=== PATIENT | female | born 1970 | race Caucasian/White ===

== ENCOUNTER → 2018-04-21 10:37 | Outpatient (CLI) | payer OTHER, SELFPAY ==
--- NOTE | 2018-04-21 11:11 | ECHOD_ITS ---
Reason For Study: PVC Procedure This was a 2D Doppler, Color Flow transthoracic echocardiogram. Exam performed in department. Left Ventricle Normal size and thickness. The estimated ejection fraction is 65 %. Normal diastology for age. No regional wall motion abnormalities noted. Right Ventricle Normal size and thickness. Normal systolic function. Atria Normal left atrium. Normal right atrium. Normal atrial septum. Mitral Valve The mitral valve is structurally normal. No prolapse or stenosis seen. Tricuspid Valve Normal tricuspid valve. Trivial tricuspid valve insufficiency. Right ventricular systolic pressure estimated to be 27 mmHg. Aortic Valve Normal aortic valve. Trisinus/trileaflet aortic valve. Pulmonic Valve Normal pulmonic valve. Trivial pulmonic valve insufficiency. Great Vessels Normal aortic root. Normal arch. Normal inferior vena cava. Inferior vena cava collapse with sniff. Pericardium/Pleural No pericardial effusion. MMode/2D Measurements & Calculations LVIDd: 4.6 cm IVSd: 1.0 cm Ao root diam: 3.4 cm LVIDs: 2.9 cm LVPWd: 0.96 cm RVDd: 3.6 cm FS: 37.2 % LAV(MOD-bp): 68.8 ml LA A4 area: 20.9 cm2 RA A4 area: 14.5 cm2 LAV(MOD-bp) Indexed: 30.7 ml/m2 LAV(MOD-sp2): 71.2 ml LAV(MOD-sp4): 66.3 ml Time Measurements MV dec time: 0.20 sec Doppler Measurements & Calculations MV E max kwan: 87.6 cm/sec Lat Peak E' Kwan: 7.9 cm/sec Med Peak E' Kwan: 7.2 cm/sec MV A max kwan: 86.1 cm/sec E/E' lat: 11.1 E/E' med: 12.2 MV E/A: 1.0 Ao V2 max: 125.2 cm/sec LV V1 max: 100.9 cm/sec PA V2 max: 83.6 cm/sec Ao max P.3 mmHg LV V1 max P.1 mmHg TR max kwan: 235.9 cm/sec TR max P.3 mmHg Interpretation Summary The estimated ejection fraction is 65 %. Normal diastology for age. Trivial tricuspid valve insufficiency. Right ventricular systolic pressure estimated to be 27 mmHg. There is no comparison study available. Ordering Physician: Vishal Meneses Referring Physician: Vishal Meneses Performed By: Lauren Dickens, PRINCESS, RVT
== END ==
PROVIDERS: Visit Provider Internal Medicine Cardiovascular Disease
DX: I49.3 Ventricular premature depolarization (principal); R06.00 Dyspnea, unspecified; R07.9 Chest pain, unspecified; R42 Dizziness and giddiness
CPT/HCPCS: 93306

== ENCOUNTER 2018-04-24 08:35 | Outpatient (RCR) | payer OTHER, SELFPAY | END 2018-05-10 23:59 | disposition home or self-care (01) | LOC: NS 08:35 | DX: E11.40 Type 2 diabetes mellitus with diabetic neuropathy, unspecified (principal); I10 Essential (primary) hypertension; E66.01 Morbid (severe) obesity due to excess calories; Z68.41 Body mass index [BMI] 40.0-44.9, adult; Z71.3 Dietary counseling and surveillance ==

== ENCOUNTER 2018-05-11 09:07 | Outpatient (RCR) | payer OTHER, SELFPAY | END 2018-05-11 17:31 | disposition home or self-care (01) | LOC: NS 09:07 | DX: E11.40 Type 2 diabetes mellitus with diabetic neuropathy, unspecified (principal); I10 Essential (primary) hypertension; E66.01 Morbid (severe) obesity due to excess calories; Z68.41 Body mass index [BMI] 40.0-44.9, adult; Z71.3 Dietary counseling and surveillance | CPT/HCPCS: 97802 ==

== ENCOUNTER → 2018-07-21 09:59 | Outpatient (CLI) | payer OTHER, SELFPAY ==
[2018-07-21 10:09] LABS: Bacteria 0 SEEN /hpf (None Seen); Mucous, Urine 0 SEEN /hpf (<or=2+); Red Blood Cells-Urine 0 SEEN /hpf (0-5); Squamous Epithelial Cells - UA 0 SEEN /hpf (5-10)
[2018-07-21 12:31] LABS: Absolute Lymphocyte Count 2.28 X10^3/ul (0.83-4.51); Absolute Neutrophil Count 5.4 X10^3/uL (2.0-7.7); Basophil# 0.03 X10^3/uL; Basophil% 0.4 % (0-1); Eosinophil# 0.07 X10^3/uL; Eosinophils% 0.9 % (0-5); Hematocrit 42.4 % (37-47); Hemoglobin 13.9 g/dl (12.0-15.0); Lymphocyte # 2.28 X10^3/ul (4.0); Lymphocyte % 27.8 % (19-41); Mean Corp Hgb Conc 32.8 g/gl (32-36); Mean Corpuscular Hgb 28.9 pg (27.0-32.0); Mean Corpuscular Volume 88.1 fL (81-99); Mean Platelet Vol. 12.6 fl (6.2-12.0); Monocyte# 0.41 X10^3/uL; Neutrophil # 5.41 X10^3/uL (2.7-7.7); Neutrophil % 65.8 % (47-70); Platelet Count 199 K/mm3 (150-450); RBC Distribution Width SD 44.8 fl (35.1-43.9); Red Blood Count 4.81 M/mm3 (4.2-5.4); White Blood Count 8.2 K/mm3 (4.4-11.0)
[2018-07-21 12:36] LABS: POSITIVE COUNT NO; POSITIVE DIFFERENTIAL NO; POSITIVE MORPHOLOGY NO
[2018-07-21 12:56] LABS: Color, Urine Yellow (Yellow); Glucose, Dipstick 100 mg/dl (Normal); Ketone-Dipstick 5 mg/dl (Negative); Leukocyte Esterase-Dipstick 25 /ul (Negative); Nitrite-Dipstick Negative (Negative); Occult Blood-Urine Negative /ul (Negative); Protein-Dipstick Negative (Negative); Urine Bilirubin Dipstick Negative (Negative); Urine Clarity Sl. Cloudy (Clear); Urine Urobilinogen Normal (Normal)
[2018-07-21 12:57] LABS: Vitamin B12 425 pg/mL (211-911); Vitamin D,25 Hydroxy 19.4 ng/mL (29.95-100.01)
[2018-07-21 12:58] LABS: Hemoglobin A1c 9.2 % (4.2-6.3)
[2018-07-21 13:03] LABS: AST(SGOT) 21 U/L (15-37); Alanine Aminotransfer ALT/SGPT 37 U/L (13-56); Albumin, Serum 3.6 g/dL (3.2-5.0); Alkaline Phosphatase 98 U/L (45-117); Anion Gap 10 (5-15); BUN 10 mg/dL (7-18); BUN/Creat Ratio 15.9 RATIO (10-20); Calcium,Total 8.8 mg/dL (8.5-10.1); Chloride 102 mmol/L (98-107); Creatinine, Serum 0.63 mg/dL (0.55-1.02); EST Glomerular Filtration Rate 107 mL/min (>60); Est Glom Filt Rate - Afr Amer 129 mL/min (>60); Globulin 3.7 g/dL (2.2-4.2); Glucose 225 mg/dL (74-106); Potassium 4.2 mmol/L (3.5-5.1); Protein, Total 7.3 g/dL (6.4-8.2); Sodium Level 138 mmol/L (136-145); Thyroid Stim Hormone (TSH) 1.14 uIU/mL (0.358-3.74)
[2018-07-21 13:04] LABS: White Blood Cells 0-5 SEEN /hpf (0-5)
[2018-07-21 20:27] LABS: Microalbumin,Random Urine 8.1 mg/L (NO RANGE EST.); Microalbumin:Creatinine Ratio 10.8 mg/g CRE (<30 mg/g CRE)
[2018-07-27 10:37] LABS: Vitamin B1, Thiamine 120.9 nmol/L (66.5-200.0)
--- OUTSIDE RECORDS SUMMARY | 2018-09-06 10:18 | XMS RPT_ITS ---
:1970 Author Organization OHIP Care Team Providers Name Role Phone Vishal Meneses Attending Unavailable Primay Care Physicia, No Referring Unavailable Visahl Meneses Attending Unavailable Vishal Meneses Referring Unavailable Primay Care Physicia, No Primary Care Unavailable Vishal Meneses Attending Unavailable Vishal Meneses Referring Unavailable Primay Care Physicia, No Primary Care Unavailable Robbi Peck Attending Unavailable Robbi Peck Primary Care Unavailable Vishal Meneses Attending Unavailable Vishal Meneses Referring Unavailable Vishal Meneses Attending Unavailable Vishal Meneses Attending Unavailable Vishal Meneses Referring Unavailable Primay Care Physicia, No Primary Care Unavailable Primay Care Physicia, No Primary Care Unavailable BARBARA MALIK Attending Unavailable BARBARA MALIK Referring Unavailable BARBARA MALIK Consulting Unavailable Primay Care Physicia, No Primary Care Unavailable BARBARA MALIK Attending Unavailable BARBARA MALIK Referring Unavailable BARBARA MALIK Consulting Unavailable Vishal Meneses Attending Unavailable Vishal Meneses Referring Unavailable PROBLEMS PROBLEMS DATE TYPE CONDITION / CODE ATTENDING STATUS SOURCE 08/06/2018 Unknown E11.40 - Type 2 Robbi Peck Active Mobile diabetes mellitus E [facility]ly [facility] with diabetic Hospital neuropathy, Repository unspecified / E11.40(ICD-10) 07/24/2018 Unknown R07.9 - Chest pain, Vishal Meneses Active Mobile unspecified / Community R07.9(ICD-10) Hospital Repository 06/19/2018 Unknown I49.3 - Ventricular Vishal Meneses Active [facility] premature Community depolarization / Hospital I49.3(ICD-10) Repository 05/19/2018 Unknown R06.09 - Other forms Vishal Meneses Active [employer] of dyspnea / Community R06.09(ICD-10) Hospital Repository PROCEDURES PROCEDURES No Procedure Records FoundRESULTS RESULTS CBC W/DIFF, AUTOMATED Collected: 07/21/2018 Status: F Source: MIK 10:02 AM [facility] REPOSITORY TYPE CODE TESTS RESULT OUT OF RANGE REFERENCE UNITS LAB L100.1000 4.4-11.0 K/mm3 Normal WBC 8.2 LAB L100.1200 4.2-5.4 M/mm3 Normal RBC 4.81 LAB L100.1300 12.0-15.0 g/dl Normal HGB 13.9 LAB L100.1400 37-47 % Normal HCT 42.4 LAB L100.1500 81-99 fL Normal MCV 88.1 LAB L100.1600 27.0-32.0 pg Normal MCH 28.9 LAB L100.1700 32-36 g/gl Normal MCHC 32.8 LAB L100.1810 11.6-14.6 % Normal RDW CV 14.0 LAB L100.1820 35.1-43.9 fl High RDW SD 44.8 LAB L100.1900 150-450 K/mm3 Normal PLT 199 LAB L100.2000 6.2-12.0 fl High MPV 12.6 LAB L100.2100 47-70 % Normal NEUT% 65.8 LAB L100.2200 19-41 % Normal LY% 27.8 LAB L100.2300 0-10 % Normal MONO% 5.0 LAB L100.2400 0-5 % Normal EO% 0.9 LAB L100.2500 0-1 % Normal BASO% 0.4 LAB L100.2550 0.0-0.9 % Normal IM GRAN % 0.100 Result Comment: IG% - Immature Granulocytes (promyelocytes, myelocytes and metamyelocytes) > 1% indicates that a LEFT SHIFT is Present. LAB L100.2620 2.0-7.7 X10 3/uL Normal Absolute Neut 5.4 LAB L100.2720 0.83-4.51 X10 3/ul Normal Absolute Lymph 2.28 Performed By: #### L100.0100, L503.0105, L506.1000, L501.9985, L500.4050, L501.9520, L502.0250 #### [facility] [address] [place], [place], [address] VITAMIN B12 Collected: 07/21/2018 Status: F Source: MIK 10:02 AM [facility] REPOSITORY TYPE CODE TESTS RESULT OUT OF RANGE REFERENCE UNITS LAB L503.0105 211-911 pg/mL Normal Vitamin B12 425 Performed By: #### L100.0100, L503.0105, L506.1000, L501.9985, L500.4050, L501.9520, L502.0250 #### [facility] [address] [place], [address] VITAMIN D,25 HYDROXY Collected: 07/21/2018 Status: F Source: MIK 10:02 AM [facility] REPOSITORY TYPE CODE TESTS RESULT OUT OF REFERENCE UNITS RANGE LAB L506.1000 29.95-100.01 ng/mL Low Vitamin D 19.4 25-OH Result Comment: Vitamin D 25(OH) Status Range Deficiency <20 ng/mL (50nmol/L) Insuffciency 20 - 30 ng/mL (50 - 75 nmol/L) Sufficiency 30 - 100 ng/mL (75 - 250 nmol/L) Toxicity >100 ng/mL (>250 nmol/L) Performed By: #### L100.0100, L503.0105, L506.1000, L501.9985, L500.4050, L501.9520, L502.0250 #### [facility] [address] [place], [address] HEMOGLOBIN A1C Collected: 07/21/2018 Status: F Source: MIK 10:02 [facility] REPOSITORY TYPE CODE TESTS RESULT OUT OF RANGE REFERENCE UNITS LAB L501.9985 4.2-6.3 % High HGB A1C 9.2 Performed By: #### L100.0100, L503.0105, L506.1000, L501.9985, L500.4050, L501.9520, L502.0250 #### [facility] [address] [place], [address] COMPREHENSIVE METABOLIC Collected: 07/21/2018 Status: F Source: MIK [facility] 10:02 AM [facility] REPOSITORY Order Comment: Comments: B6 #[id number] PLASMA FROZEN PFL TYPE CODE TESTS RESULT OUT OF RANGE REFERENCE UNITS LAB L501.0100 74-106 mg/dL High GLU 225 Result Comment: Glucose result greater than or equal to 200 mg/dL suggests DIABETES MELLITUS per A.D.A. criteria. Please note revised GLUCOSE reference range effective 2017. LAB L501.1000 7-18 mg/dL Normal BUN 10 LAB L501.1100 0.55-1.02 mg/dL Normal CREAT,SERUM 0.63 Result Comment: The validity of the calculated GFR AND GFRAA in patients over 70 years has not been determined. Clinical correlation is essential. LAB L501.1110 >60 mL/min Normal EST GFR 107 Result Comment: Non- GFR Calc LAB L501.1115 >60 mL/min Normal EST GFR - AA 129 Result Comment: GFR Calc LAB L501.1300 10-20 RATIO Normal BUN/CRE 15.9 LAB L501.1500 6.4-8.2 g/dL T Normal PROT 7.3 LAB L501.1800 3.2-5.0 g/dL Normal ALB 3.6 LAB L501.1950 2.2-4.2 g/dL Normal GLOB 3.7 LAB L501.2000 0.9-2.4 RATIO Normal A/G 1.0 LAB L501.2200 8.5-10.1 mg/dL CA Normal 8.8 LAB L501.4100 15-37 U/L Normal AST 21 LAB L501.4305 45-117 U/L Normal ALK P 98 LAB L501.4405 13-56 U/L Normal ALT 37 LAB L501.4600 0.20-1.00 mg/dL T Normal BILI 0.70 LAB L501.5300 136-145 mmol/L NA Normal 138 LAB L501.5600 3.5-5.1 mmol/L K Normal 4.2 LAB L501.5900 98-107 mmol/L CL Normal 102 LAB L501.6100 21.0-32.0 mmol/L Normal CO2 26.0 LAB L501.6200 5-15 Normal GAP 10 Performed By: #### L100.0100, L503.0105, L506.1000, L501.9985, L500.4050, L501.9520, L502.0250 #### [facility] [address] [place], [address] THYROID STIM HORMONE Collected: 07/21/2018 Status: F Source: MIK (TSH) 10:02 AM [facility] REPOSITORY Order Comment: Comments: B6 #[id number] PLASMA FROZEN PFL TYPE CODE TESTS RESULT OUT OF RANGE REFERENCE UNITS LAB L501.9520 0.358-3.74 uIU/mL Normal TSH 1.14 Performed By: #### L100.0100, L503.0105, L506.1000, L501.9985, L500.4050, L501.9520, L502.0250 #### [facility] [address] [place], [place], [id number] MICROALB:CREAT Collected: 07/21/2018 Status: F Source: MIK RATIO,RANDOM UR 10:02 AM [facility] REPOSITORY TYPE CODE TESTS RESULT OUT OF RANGE REFERENCE UNITS LAB L501.1200 NO RANGE EST. mg/dL Normal UR CREAT 74.40 LAB L502.0500 NO RANGE EST. mg/L Normal 8.1 MICROALBUMIN ,UR LAB L502.0600 <30 mg/g CRE mg/g CRE Normal 10.8 MALB:CREAT Performed By: #### L100.0100, L503.0105, L506.1000, L501.9985, L500.4050, L501.9520, L502.0250 #### [facility] [address] [facility] [place], [place], [id number] URINALYSIS, COMPLETE Collected: 07/21/2018 Status: F Source: MIK 10:02 AM [facility] REPOSITORY Order Comment: Comments: B6 #4655 PLASMA FROZEN PFL How was Urine Obtained? CLEAN CATCH TYPE CODE TESTS RESULT OUT OF RANGE REFERENCE UNITS LAB L400.3000 Yellow COLOR Normal Yellow LAB L400.3050 Clear Normal CLARITY Sl. Cloudy LAB L400.3200 Normal mg/dl High GLUCOSE, UR 100 LAB L400.3300 Negative mg/dL Normal BILIRUBIN URINE Negative LAB L400.3400 Negative mg/dl High 5 KETONE UR LAB L400.3465 1.002-1.030 Normal SP.GR. DIPSTX 1.020 LAB L400.3550 5.0 - 8.0 pH UR Normal 6.0 LAB L400.3600 Negative mg/dl PROT Normal DIPSTX Negative LAB L400.3700 Normal mg/dl Normal UROBILI Normal LAB L400.3750 Negative Normal NITRITE UR Negative LAB L400.3780 Negative /ul Normal OCCULT BLOOD-UR Negative LAB L400.3800 Negative /ul High LEUK 25 ESTERASE LAB L400.4050 0-5 /hpf WBC Normal 0-5 SEEN LAB L400.4100 0-5 /hpf 0 Normal RBC-UA SEEN LAB L400.4150 5-10 /hpf SQUAM 0 Normal EPI SEEN LAB L400.4300 None Seen /hpf 0 Normal BACTERIA SEEN LAB L400.4350 <or=2+ /hpf 0 Normal MUCUS, URINE SEEN Performed By: #### L400.0001 #### [facility] [address] [place], [address] VITAMIN B1, THIAMINE Collected: 07/21/2018 Status: F Source: MIK 10:02 AM [facility] REPOSITORY Order Comment: Comments: B6 #4655 PLASMA FROZEN PFL TYPE CODE TESTS RESULT OUT OF RANGE REFERENCE UNITS LAB L3300.8000 66.5-200.0 nmol/L Normal VIT B1 120.9 Result Comment: This test was developed and its performance characteristics determined by [employer]. It has not been cleared or approved by the Food and Drug Administration. Performed at: [address] [id number] [employer]: Helder Douglas MD, Phone: [phone] Performed By: #### L3300.8000 #### [facility] (refer to report for specific site) refer to report for address and phone number MISCELLANEOUS LAB Collected: 07/21/2018 Status: F Source: MIK PROCEDURE 10:02 AM [facility] REPOSITORY Order Comment: Comments: B6 #4655 PLASMA FROZEN PFL Test(s) Ordered: B6 #4655 PLASMA FROZEN PFL TYPE CODE TESTS RESULT OUT OF RANGE REFERENCE UNITS LAB L801.1541 Normal [facility] LAB TEST Result Comment: TEST RESULT LIMITS Vitamin B6, Plasma 6.4 ug/L 2.0 - 32.8 Disclaimer: This test was developed and its performance characteristics determined by [employer]. It has not been cleared or approved by the Food and Drug Administration. TESTING PERFORMED AT [facility]. ORIGINAL REPORT ON FILE IN LAB CONTAINS ADDITIONAL TEST SITE INFORMATION. Performed By: #### L801.1541 #### [facility] [address] [place], [address] ECHOCARDIOGRAM COMPLETE Observed: 04/21/2018 Status: F Source: [place] 5:07 PM [facility] REPOSITORY [facility] [address] [place] [address] Echo Complete 04/21/18 1116 MR#: [id number] Acct: [id number] Name: JUANITO NIÑO Rep #: [id number] : 1970 48 From: Vishal Meneses MD Attending Dr: Vishal Meneses MD Status: REG CLI Ordering Dr: Vishal Meneses MD Date: 04/21/18 Location: [facility] Sex: F C Admitted: Reason For Study: PVC Procedure This was a 2D Doppler, Color Flow transthoracic echocardiogram. Exam performed in department. Left Ventricle Normal size and thickness. The estimated ejection fraction is 65 %. Normal diastology for age. No regional wall motion abnormalities noted. Right Ventricle Normal size and thickness. Normal systolic function. Atria Normal left atrium. Normal right atrium. Normal atrial septum. Mitral Valve The mitral valve is structurally normal. No prolapse or stenosis seen. Tricuspid Valve Normal tricuspid valve. Trivial tricuspid valve insufficiency. Right ventricular systolic pressure estimated to be 27 mmHg. Aortic Valve Normal aortic valve. Trisinus/trileaflet aortic valve. Pulmonic Valve Normal pulmonic valve. Trivial pulmonic valve insufficiency. Great Vessels Normal aortic root. Normal arch. Normal inferior vena cava. Inferior vena cava collapse with sniff. Pericardium/Pleural No pericardial effusion. MMode/2D Measurements AND Calculations LVIDd: 4.6 cm IVSd: 1.0 cm Ao root diam: 3.4 cm LVIDs: 2.9 cm LVPWd: 0.96 cm RVDd: 3.6 cm FS: 37.2 % LAV(MOD-bp): 68.8 ml LA A4 area: 20.9 cm2 RA A4 area: 14.5 cm2 LAV(MOD-bp) Indexed: 30.7 ml/m2 LAV(MOD-sp2): 71.2 ml LAV(MOD-sp4): 66.3 ml Time Measurements MV dec time: 0.20 sec Doppler Measurements AND Calculations MV E max kwan: 87.6 cm/sec Lat Peak E' Kwan: 7.9 cm/sec Med Peak E' Kwan: 7.2 cm/sec MV A max kwan: 86.1 cm/sec E/E' lat: 11.1 E/E' med: 12.2 MV E/A: 1.0 Ao V2 max: 125.2 cm/sec LV V1 max: 100.9 cm/sec PA V2 max: 83.6 cm/sec Ao max P.3 mmHg LV V1 max P.1 mmHg TR max kwan: 235.9 cm/sec TR max P.3 mmHg Interpretation Summary The estimated ejection fraction is 65 %. Normal diastology for age. Trivial tricuspid valve insufficiency. Right ventricular systolic pressure estimated to be 27 mmHg. There is no comparison study available. Ordering Physician: Vishal Meneses Referring Physician: Vishal Meneses Performed By: Lauren Dickens RDCS, RVT 04/21/181705 Date Vishal Meneses MD CC: No Primary Care Physician; Vishal Meneses MD Date Dictated: 04/21/186 Date Transcribed: 04/21/181705 [employer]der: Signed OFFICE VISIT (FAMILY Observed: 01/01/2018 Status: UNK Source: [facility]) 1:25 PM HOSPITALS REPOSITORY History of Present Illness Patient is here for health management evaluation of DM, HTN Is taking and tolerating Glyburide Fasting blood sugar was 165 this morning Does have numbness/weakness in feet. Is taking Gabapentin for this review labs WOuld like to get referral to director of math for wt loss Is there anything she can take to help with weight loss -is not exercising a lot, goes for a walk in the afternoon Has an appointment with weight watchers tomorrow Wants to know if there is anything she can take to curb her appetite Back is really bothering her. When she bends or lifts it feels like something pops, has not yet done Physical Therapy wants a scan of her back to rule out any abnormalities Patient states that this is the heaviest she has ever weighed Has tried Aleve, which did not help Denies numbness in groin area, incontinence of stool/urine, unexplained weight loss, night sweats, Has a rash around her stomach and on the folds of her skin Notes that she has moles around hr body. Not bothersome but annoying Review of Systems Constitutional: no night sweats. Genitourinary: no incontinence. Musculoskeletal: back pain. Integumentary: a rash. Neurological: numbness and tingling. Endocrine: no recent weight loss. Active Problems Abnormal tympanic membrane, left (384.9) (H73.92) Arthralgia of multiple joints (719.49) (M25.50) control (V25.9) (Z30.9) Lora infection (112.9) (B37.9) Diabetes mellitus with neuropathy (250.60,357.2) (E11.40) Diabetic polyneuropathy associated with type 2 diabetes mellitus (250.60,357.2) (E11.42) GERD (gastroesophageal reflux disease) (530.81) (K21.9) HTN (hypertension) (401.9) (I10) Immunization due (V05.9) (Z23) Intertrigo (695.89) (L30.4) Joint pain (719.40) (M25.50) Left hip pain (719.45) (M25.552) Low back pain (724.2) (M54.5) Malaise and fatigue (780.79) (R53.81,R53.83) Neuropathy (355.9) (G62.9) Rash (782.1) (R21) Restless legs syndrome (333.94) (G25.81) Vitamin B 12 deficiency (266.2) (E53.8) Vitamin D deficiency (268.9) (E55.9) Past Medical History History of cold sores (V12.09) (Z86.19) History of heartburn (V12.79) (Z87.898) History of pharyngitis (V12.69) (Z87.09) History of sinusitis (V12.69) (Z87.09) History of staphylococcal infection (V12.09) (Z86.19) History of streptococcal pharyngitis (V12.09) (Z87.09) History of Lateral epicondylitis of left elbow (726.32) (M77.12) History of Palpitations (785.1) (R00.2) Polydipsia (783.5) (R63.1) History of Polyuria (788.42) (R35.8) Surgical History History of Appendectomy History of Cholecystectomy Laparoscopic History of Inner Ear Surgery History of Partial Colectomy Family History Family history of Family history of diabetes mellitus (V18.0) (Z83.3) Family history of CABG Family history of Family history of diabetes mellitus (V18.0) (Z83.3) Family history of lung cancer (V16.1) (Z80.1) Family history of malignant neoplasm of urinary bladder (V16.52) (Z80.52) Family history of skin cancer (V16.8) (Z80.8) Family history of cardiomyopathy (V17.49) (Z82.49) Family history of myocardial infarction (V17.3) (Z82.49) Family history of ICD (implantable cardioverter-defibrillator) discharge Social History Never a smoker No alcohol use Allergies lisinopril Chest Pain;; Recorded By: Becky Santacruz; 08/21/2017 3:53:06 PM metformin Diarrhea; Recorded By: Sabrina Pagan; 07/28/2017 11:19:32 AM Current Meds Meloxicam 15 MG Oral Tablet; TAKE 1 TABLET BY MOUTH EVERY DAY NEEDED; Therapy: 05Sep2017 to (Evaluate:96Vxp6277) Requested for: 05Sep2017; Last Rx:05Sep2017 Ordered Rx By: Marnie Pyle; Dispense: 30 Days ; #:30 Tablet; Refill: 0;For: Arthralgia of multiple joints; EILEEN = N; Verified Transmission to [facility] #3088; Last Updated By: [employer]; 01/01/2018 1:19:53 PM Gabapentin 300 MG Oral Capsule; TAKE 1 CAPSULE 3 TIMES DAILY; Therapy: 37Uvl7302 to (Evaluate:24Jan2018) Requested for: 37Hpo8628; Last Rx:[id number] Ordered Rx By: Marnie Pyle; Dispense: 90 Days ; #:270 Capsule; Refill: 1;For: Diabetes mellitus with neuropathy; EILEEN = N; [facility]; Last Updated By: [employer]; 01/01/2018 1:19:53 PM GlyBURIDE 5 MG Oral Tablet; TAKE 1 TABLET TWICE DAILY BEFORE MEALS; Therapy: 30Fjv0449 to (Evaluate:35Wrz1278) Requested for: 05Sep2017; Last Rx:05Sep2017 Ordered Rx By: Marnie Pyle; Dispense: 90 Days ; #:180 Tablet; Refill: 1;For: Diabetes mellitus with neuropathy; EILEEN = N; Verified Transmission to [facility] #3088; Last Updated By: [employer]; 01/01/2018 1:19:53 PM Aspirin 81 MG TABS; TAKE 1 TABLET DAILY; Therapy: 09Jan2015 to Recorded Dispense: 0 Days ; #: Sufficient Tablet; Refill: 0;For: Health Maintenance; EILEEN = N; Record; Last Updated By: Yakelin Decker; 01/09/2015 2:57:23 PM AmLODIPine Besylate 5 MG Oral Tablet; TAKE 1 TABLET DAILY; Therapy: 05Sep2017 to (Evaluate:39Chd1666) Requested for: 05Sep2017; Last Rx:05Sep2017 Ordered Rx By: Marnie Pyle; Dispense: 90 Days ; #:90 Tablet; Refill: 1;For: HTN (hypertension); EILEEN = N; Verified Transmission to [facility] #3088; Last Updated By: [employer]; 01/01/2018 1:19:54 PM Atenolol 50 MG Oral Tablet; TAKE 1 TABLET DAILY DIRECTED Requested for: 86Crj3635; Last Rx:[id number] Ordered Rx By: Marnie Pyle; Dispense: 30 Days ; #:30 Tablet; Refill: 0;For: HTN (hypertension); EILEEN = N; Verified Transmission to [facility] #3088; Last Updated By: [employer]; 01/01/2018 1:19:52 PM Omeprazole 20 MG Oral Capsule Delayed Release; TAKE 1 CAPSULE DAILY Requested for: 23Saw8818; Last Rx:[id number] Ordered Rx By: Marnie Pyle; Dispense: 90 Days ; #:90 Capsule Delayed Release; Refill: 1;For: PMH: History of heartburn; EILEEN = N; Verified Transmission to [facility] #3088; Last Updated By: [facility]; 01/01/2018 1:19:52 PM Vitamin B-12 1000 MCG Oral Tablet; TAKE 1 TABLET DAILY DIRECTED; Therapy: 80Dbu3008 to (Evaluate:91Kwo5937) Requested for: 17Fjx6996; Last Rx:[id number] Ordered Rx By: Marnie Pyle; Dispense: 90 Days ; #:90 Tablet; Refill: 1;For: Vitamin D deficiency; EILEEN = N; Verified Transmission to [facility] #3088; Last Updated By: [employer]; 07/28/2017 11:21:22 AM Vitamin D3 2000 UNIT Oral Tablet; Take 1 tablet daily; Therapy: 98Beu9896 to (Last Rx:52Cug9428) Requested for: 22Hrq3046 Ordered Rx By: Marnie Pyle; Dispense: 0 Days ; #:90 Tablet; Refill: 1;For: Vitamin D deficiency; EILEEN = N; Verified Transmission to [facility] #3088; Last Updated By: [employer]; 07/28/2017 11:21:20 AM Vitals Vital Signs Recorded: 17Gpf2722 12:57PM Ucltdzvwxht13.4 F Heart Rate70 Cxruivpnbtx26 Orbekpko307 Ksioghpfb09 Bzwkqv212 lb BMI Exfrasvuin33.77 BSA Calculated2.25 O2 Ialeaipabc51 Physical Exam Gen: patient is alert and oriented 3, pleasant, and in no apparent distress. Psychiatric: Patient has good eye contact. Mood and affect are appropriate.. HEENT: EOMI, pupils reactive and normal sized, mucous membranes moist and pink. Neck: No JVD or thyromegaly, no cervical lymphadenopathy Cardiovascular: heart regular rate and rhythm with no murmurs clicks or gallops Lungs: clear to auscultation without wheeze, rhonchi or rales. Abdomen: soft, nontender, no hepatosplenomegaly, nondistended with normal bowel sounds. Extremities: no clubbing, cyanosis or edema Neurologic- DTRs 2 out of 44 extremities. Strength 5 out of 54 extremities. Cranial nerves II through XII grossly intact. Gait normal. Sensation intact 4 extremities. Extensor hallucis longus strength 5 out of 5 bilaterally. able to toe walk, heel walk but caused pain on left side of back/buttocks Diagnoses/Problems Diabetic polyneuropathy associated with type 2 diabetes mellitus (250.60,357.2) (E11.42) Obesity, morbid, BMI 40.0-49.9 (278.01) (E66.01) Vitamin D deficiency (268.9) (E55.9) HTN (hypertension) (401.9) (I10) Low back pain (724.2) (M54.5) Lora infection (112.9) (B37.9) Orders Arthralgia of multiple joints Renew: Meloxicam 15 MG Oral Tablet; TAKE 1 TABLET BY MOUTH EVERY DAY NEEDED Rx By: Marnie Pyle; Dispense: 30 Days ; #:30 Tablet; Refill: 5;For: Arthralgia of multiple joints; EILEEN = N; Verified Transmission to [facility] #3088; Last Updated By: [employer]; 01/01/2018 1:19:53 PM Lora infection Start: Nystatin 709299 UNIT/GM External Cream; APPLY 2- 3 TIMES DAILY TO AFFECTED AREA(S) Rx By: Marnie Pyle; Dispense: 0 Days ; #:1 X 30 GM Tube; Refill: 3;For: Lora infection; EILEEN = N; Verified Transmission to [facility] #3088; Last Updated By: [employer]; 01/01/2018 1:21:06 PM Diabetes mellitus with neuropathy Renew: Gabapentin 300 MG Oral Capsule; TAKE 1 CAPSULE 3 TIMES DAILY Rx By: Marnie Pyle; Dispense: 90 Days ; #:270 Capsule; Refill: 1;For: Diabetes mellitus with neuropathy; EILEEN = N; Verified Transmission to [facility] #3088; Last Updated By: [employer]; 01/01/2018 1:19:53 PM Renew: GlyBURIDE 5 MG Oral Tablet; TAKE 1 TABLET TWICE DAILY BEFORE MEALS Rx By: Marnie Pyle; Dispense: 90 Days ; #:180 Tablet; Refill: 1;For: Diabetes mellitus with neuropathy; EILEEN = N; Verified Transmission to [facility] #3088; Last Updated By: [employer]; 01/01/2018 1:19:53 PM Diabetic polyneuropathy associated with type 2 diabetes mellitus Basic Metabolic Panel; Source:Blood (D); Status:Hold For - Exact Date,Retrospective Authorization; Requested for:Approx [id number]; Perform:Lab Services - Lab To Draw (Blood Test); Due:69Eic7148; Last Updated By:Sabrina Pagan; 01/01/2018 1:22:55 PM;Ordered; For:Diabetic polyneuropathy associated with type 2 diabetes mellitus; Orde red By:Marnie Pyle; Hemoglobin A1C; Source:Blood (BLD); Status:Hold For - Exact Date,Retrospective Authorization; Requested for:Approx [id number]; Perform:Lab Services - Lab To Draw (Blood Test); Due:01Apr2018; Last Updated By:Sabrina Pagan; 01/01/2018 1:22:55 PM;Ordered; For:Diabetic polyneuropathy associated with type 2 diabetes mellitus; Orde red By:Marnie Pyle; Diabetic polyneuropathy associated with type 2 diabetes mellitus, Vitamin D deficiency Vitamin D 25-Hydroxy; Source:Blood (BLD); Status:Hold For - Exact Date,Retrospective Authorization; Requested for:Approx [id number]; Perform:Lab Services - Lab To Draw (Blood Test); Due:01Apr2018; Last Updated By:Sabrina Pagan; 01/01/2018 1:22:55 PM;Ordered; For:Diabetic polyneuropathy associated with type 2 diabetes mellitus, Blanca min D deficiency; Ordered By:Marnie Pyle; HTN (hypertension) Renew: AmLODIPine Besylate 5 MG Oral Tablet; TAKE 1 TABLET DAILY Rx By: Marnie Pyle; Dispense: 90 Days ; #:90 Tablet; Refill: 1;For: HTN (hypertension); EILEEN = N; Verified Transmission to [facility] #3088; Last Updated By: [employer]; 01/01/2018 1:19:54 PM Renew: Atenolol 50 MG Oral Tablet; TAKE 1 TABLET DAILY DIRECTED Rx By: Marnie Pyle; Dispense: 90 Days ; #:90 Tablet; Refill: 1;For: HTN (hypertension); EILEEN = N; Verified Transmission to [facility] #3088; Last Updated By: [employer]; 01/01/2018 1:19:52 PM Low back pain Physical Therapy Referral Evaluation and Treatment Evaluate AND Treat Status: Hold For - Scheduling,Retrospective Authorization Requested for: [id number] Ordered;For: Low back pain; Ordered By: Marnie Pyle Performed: Due: 01Apr2018; Last Updated By: Sabrina Pagan; 01/01/2018 1:13:35 PM Obesity, morbid, BMI 40.0-49.9 Dietary Consult Referral Evaluation and Treatment Evaluate AND Treat Status: Hold For - Scheduling,Retrospective Authorization Requested for: [id number] Ordered;For: Obesity, morbid, BMI 40.0-49.9; Ordered By: Marnie Pyle Performed: Due: [id number]; Last Updated By: Sabrina Pagan; 01/01/2018 1:09:30 PM PMH: History of heartburn Renew: Omeprazole 20 MG Oral Capsule Delayed Release; TAKE 1 CAPSULE DAILY Rx By: Marnie Pyle; Dispense: 90 Days ; #:90 Capsule Delayed Release; Refill: 1;For: PMH: History of heartburn; EILEEN = N; Verified Transmission to [facility]/PHARMACY #3088; Last Updated By: Agnieszka NavarreteriNetzoptiker; 01/01/2018 1:19:52 PM Vitamin D deficiency Start: Vitamin D (Ergocalciferol) 77457 UNIT Oral Capsule; TAKE 1 CAPSULE WEEKLY Rx By: Marnie Pyle; Dispense: 0 Days ; #:12 Capsule; Refill: 1;For: Vitamin D deficiency; EILEEN = N; Verified Transmission to [facility]/PHARMACY #3088; Last Updated By: Jose Alberto Nav[employer] 01/01/2018 1:12:43 PM Patient Discussion/Summary Lab review-- Reassuring blood counts - normal white count, platelets, no anemia Deficient in vit D would recommend rx strength supplementation (50K IU Vit D2, ergocalciferol once weekly x 12 weeks) to get back into normal range then standard daily supplementation of vit D3 otc 1000 IU thereafter Prescription has been sent. TSH thyroid lab is normal Electrolytes, kidneys, and liver labs all look normal Diabetes under suboptimal control. A1C at 8.2, Fasting glucose 182. Continue current management. Recommend limitation of refined carbohydrates such as pasta, pretzels, breads, , sugar sweetened foods or beverages, alcohol, pastries, cereals, and bagels. Recommend eating lots of vegetables, lean pro teins, some fruits. Eat small amounts of healthy fat daily, such as a handful of almonds or walnuts, a serving of salmon, a splash of olive oil on your salad, an avocado. Recommend short interval traini ng with short rest. Exert for 20 - 30 seconds, with 30 second rest and repeat for a total of 10 minutes 3 -4x weekly. With interval training cardiovascular health exceeded 150 minutes of moderate exercise. halfway blood sugar, A1C, will be checked every 6 months when under good control and every 3 months when not at goal. Diabetic eye exams are recommended once a year. Checking kidneys for leaking of protein should be done yearly. Patient should check their feet daily for any cracks, blisters, calluses or skin breakdown if they have any neuropathy (numbness or tingling in feet/ hands). Good control of diabetes can decrease the risk of kidney damage, neuropathy, and vision loss from diabetes. Recommend low fat high fiber foods to quiet down sensation of hunger. Items such as almonds or celery. Recommend reading any of Dr. Chavo Vilchis's books. Good dietary advice and lifestyle change recommendations can be found in such books as The 10 Day Detox , Eat Fat, Get Thin and his latest book Food : What the Heck Should I Eat? Hypertension-- New guidelines recommend goal for blood pressure less than 130/80. Ideally for stroke and heart attack risk reduction the systolic, or top, blood pressure number should be in the 110's or 120's. Patient is encouraged to continue low sodium diet (Dietary Approach to Stop Hypertension, or DASH diet). Exercise most days of the week. Limit refined carbohydrates such as pretzels, cereals, breads, pa stries, alcohol. If patient wishes to try a natural approach to lowering blood pressure, can consider whey protein 20 -30 g daily (hydrolyzed is best, but any is ok) and/or aged garlic 600 mg twice angelo y (Kyolic brand aged garlic on line is one example) and/ or CoQ10 supplement at 120 mg - 360 mg daily (average dose studied 225mg daily). Continue taking a Baby Aspirin 81 mg daily to reduce your risk for stroke and heart attack. Intertrigo-- Nystatin cream has been sent to your pharmacy. Please use as directed. Low back pain-- Recommend physical therapy. Order has been placed. Doing low back and core muscle strengthening exercises and continuing them lifelong can decrease your risk of re-injury, as well as help with acute symptoms. Neurologic exam is reassuring and the office today. X-ray is not warranted at this time. Patient may use heat or cold, whichever provides greater relief. Patient can use ibuprofen or Aleve as instructed on the bottle, unless unable to take (allergy, recent bleeding in stomach, decreased kidney function). Make sure you take those after food, risk of stoma ch upset, GI bleeding, etc. increased if taken on an empty stomach. Know that there is an extremely small but real risk of heart or stroke with use of these medicines, particularly if a person has cardi ac risk factors such as high blood pressure, cholesterol, diabetes. Tylenol can safely be used at doses up to 500 mg 2 tabs 3 times daily, unless liver function is decreased. Recommend tiger balm vaxj-pve-tmrnjjm as a topical soothing agent. Biofreeze or other menthol based products can also be tried. Avoid stacked spinal motions with bending and twisting - turn your feet to face an object and bend your knees to lift, rather than twisting and bending at the waist to lift. Red flag signs of numbness in groin/thighs, new incontinence of stool/ urine, fevers/chills/unexplained weight loss were reviewed-if at any point you experience any of these, proceed to the emergency room. Please follow up with me in 6 - 8 weeks to recheck back pain. Come in sooner as needed. Labs have been printed. Please have these done fasting in advance of the 3 month follow up visit. Fast should be at least 8 hours. You may have water or black coffee that morning. Our lab opens at 7:30 am. No appointment is needed - walks in with your lab order are welcome. Please have these done at least 3 days in advance of your follow up appointment. Please schedule a follow up with roz 3 months to recheck Diabetes. Follow up in 6-8 weeks with me for your back. By signing my name below, I, Choco Guzmán, attest that this documentation has been prepared under the direction and in the presence of Dr. Pyle. All medical record entries made by the Choco were at my direction and personally dictated by me. I have reviewed the chart and agree that the record accurately reflects my personal performance of the h istory, physical exam, discussion and plan. (Dr. Pyle ). End of Encounter Meds AmLODIPine Besylate 5 MG Oral Tablet; TAKE 1 TABLET DAILY; Therapy: 05Sep2017 to (Evaluate:30Jun2018) Requested for: [id number]; Last Rx:[id number] Ordered Aspirin 81 MG TABS; TAKE 1 TABLET DAILY; Therapy: 09Jan2015 to Recorded Atenolol 50 MG Oral Tablet; TAKE 1 TABLET DAILY DIRECTED Requested for: [id number]; Last Rx:[id number] Ordered Gabapentin 300 MG Oral Capsule; TAKE 1 CAPSULE 3 TIMES DAILY; Therapy: 30Mnx6465 to (Evaluate:30Jun2018) Requested for: 16Por3468; Last Rx:[id number] Ordered GlyBURIDE 5 MG Oral Tablet; TAKE 1 TABLET TWICE DAILY BEFORE MEALS; Therapy: 13Ibu1752 to (Evaluate:30Jun2018) Requested for: 80Iko5393; Last Rx:01Jan2018 Ordered Meloxicam 15 MG Oral Tablet; TAKE 1 TABLET BY MOUTH EVERY DAY NEEDED; Therapy: 05Sep2017 to (Evaluate:30Jun2018) Requested for: 82Tlx7440; Last Rx:01Jan2018 Ordered Nystatin [id number] UNIT/GM External Cream; APPLY 2-3 TIMES DAILY TO AFFECTED AREA(S); Therapy: 01Jan2018 to (Last Rx:01Jan2018) Requested for: 29Ico2099 Ordered Omeprazole 20 MG Oral Capsule Delayed Release; TAKE 1 CAPSULE DAILY Requested for: 64Vwc8737; Last Rx:[id number] Ordered Vitamin B-12 1000 MCG Oral Tablet; TAKE 1 TABLET DAILY DIRECTED; Therapy: 59Bpu5459 to (Evaluate:24Jan2018) Requested for: 55Abc1916; Last Rx:[id number] Ordered Vitamin D (Ergocalciferol) 51109 UNIT Oral Capsule; TAKE 1 CAPSULE WEEKLY; Therapy: 85Gkl7002 to (Last Rx:91Myx6713) Requested for: 87Egg6076 Ordered Vitamin D3 2000 UNIT Oral Tablet; Take 1 tablet daily; Therapy: 71Okq9161 to (Last Rx:[id number]) Requested for: [id number] Ordered Signatures Electronically signed by : CHOCO Guzmán; Jan 01 2018 1:21PM EST (Author) Electronically signed by : Marnie Pyle DO; Jan 01 2018 1:25PM EST (Author) CBC Collected: 12/29/2017 Status: F Source: [facility] 11:48 AM [facility] REPOSITORY TYPE CODE TESTS RESULT OUT OF REFERENCE UNITS RANGE LAB WBCR(LOINC 4.4 - 11.3 x10E9/L ) WBC 8.0 LAB NRBC(LOINC 0.0-0.0 /100 WBC ) NUCLEATED RBC 0.0 LAB RBCCT(LOIN 4.00 - 5.20 x10E12/L C) RBC 4.58 LAB HGB(LOINC) 12.0 - 16.0 g/dL HGB 13.4 LAB HCT(LOINC) 36.0 - 46.0 % HCT 41.6 LAB MCV(LOINC) 80 - 100 fL MCV 91 LAB MCHC2(LOIN 32.0 - 36.0 g/dL C) MCHC 32.2 LAB PLTCT(LOIN 150 - 450 x10E9/L C) PLT 201 LAB RDWCV(LOIN 11.5 - 14.5 % C) RDW-CV 13.8 Performed By: #### CBC #### [facility] [address] [place] [address] VITAMIN D, 25-HYDROXY Collected: 12/29/2017 Status: F Source: [place] 11:48 [facility] REPOSITORY TYPE CODE TESTS RESULT OUT OF RANGE REFERENCE UNITS LAB VTDOH(LOIN ng/mL C) Abnormal VITAMIN D, 21 25-HYDROXY Result Comment: . DEFICIENCY: < 20 NG/ML INSUFFICIENCY: 20-29 NG/ML OPTIMUM LEVEL: 30-80 NG/ML POSSIBLE TOXICITY: > 80 NG/ML THIS ASSAY ACCURATELY QUANTIFIES THE SUM OF VITAMIN D3, 25-HYDROXY AND VIT D2,25-HYDROXY. Performed By: #### VTDOH #### [facility] [address] [place] [address] TSH WITH REFLEX TO Collected: 12/29/2017 Status: F Source: [place] FREE T4 IF ABNORMAL 11:48 AM [facility] REPOSITORY TYPE CODE TESTS RESULT OUT OF RANGE REFERENCE UNITS LAB TSH2(LOINC) 0.44 - 3.98 mIU/L TSH 1.20 Result Comment: TSH testing is performed using different testing methodology at [facility] than at other [facility]. Direct result comparisons should only be made within the same method. . Patients receiving more than 5 mg/day of biotin may have interference in test results. A sample should be taken no sooner than eight hours after previous dose. Contact [phone] for additional information. Performed By: #### THYDS #### [facility] [address] [place] [address] COMPREHENSIVE PANEL Collected: 12/29/2017 Status: F Source: [facility] 11:48 [facility] REPOSITORY TYPE CODE TESTS RESULT OUT OF REFERENCE UNITS RANGE LAB GLU(LOINC) 74 - 99 mg/dL GLUCOSE High 181 LAB SOD(LOINC) 136 - 145 mmol/L SODIUM 139 LAB K(LOINC) 3.5 - 5.3 mmol/L POTASSIUM 4.3 LAB CHLOR(LOIN 98 - 107 mmol/L C) CHLORIDE 102 LAB BIC(LOINC) 21 - 32 mmol/L BICARBONATE 29 LAB ANGAP(LOIN 10 - 20 mmol/L C) ANION GAP 12 LAB UREA(LOINC 6 - 23 mg/dL ) UREA NITROGEN 9 LAB CREA(LOINC 0.50 - 1.05 mg/dL ) Low CREATININE 0.47 LAB GFRFN(LOIN >60 mL/min/1.7 C) 3m2 GFR-NON AM. >60 LAB GFRAA(LOIN >60 mL/min/1.7 C) 3m2 GFR- AM. >60 Result Comment: CALCULATIONS OF ESTIMATED GFR ARE PERFORMED USING THE MDRD STUDY EQUATION FOR THE IDMS-TRACEABLE CREATININE METHODS. CLIN CHEM 2007;53:766-72 LAB CA(LOINC) 8.6 - 10.6 mg/dL CALCIUM 9.4 LAB ALB(LOINC) 3.4 - 5.0 g/dL ALBUMIN 4.0 LAB AP(LOINC) 33 - 110 U/L ALKALINE PHOSPHATASE 80 LAB TP(LOINC) 6.4 - 8.2 g/dL TOTAL PROTEIN 6.6 LAB AST(LOINC) 9 - 39 U/L AST 22 LAB TBILI(LOINC) 0.0 - 1.2 mg/dL BILIRUBIN,TOTAL 0.7 LAB ALT(LOINC) 7 - 45 U/L ALT 25 Result Comment: Patients treated with Sulfasalazine may generate falsely decreased results for ALT. Performed By: #### CMP #### [facility] [address] [place] [address] LIPID PANEL (CORONARY Collected: 12/29/2017 Status: F Source: [facility] RISK 2) 11:48 AM [facility] REPOSITORY TYPE CODE TESTS RESULT OUT OF REFERENCE UNITS RANGE LAB CHOL(LOINC 0 - 199 mg/dL ) CHOLESTEROL 194 Result Comment: . AGE DESIRABLE BORDERLINE HIGH HIGH 0-19 Y 0 - 169 170 - 199 >/= 200 20-24 Y 0 - 189 190 - 224 >/= 225 >24 Y 0 - 199 200 - 239 >/= 240 All ranges are based on fasting samples. Specific therapeutic targets will vary based on patient-specific cardiac risk. . Pediatric guidelines reference:Pediatrics 2011, 128(S5). Adult guidelines reference: NCEP ATPIII Guidelines, JESSEE 2001, 258:2486-97 . Venipuncture immediately after or during the administration of Metamizole may lead to falsely low results. Testing should be performed immediately prior to Metamizole dosing. LAB HDL(LOINC) mg/dL HDL-CHOLESTEROL 47.7 Result Comment: . AGE VERY LOW LOW NORMAL HIGH 0-19 Y < 35 < 40 40-45 ---- 20-24 Y ---- < 40 >45 ---- >24 Y ---- < 40 40-60 >60 . LAB CHHDL(LOINC) CHOLESTEROL/HDL RATIO 4.1 Result Comment: REF VALUES DESIRABLE < 3.4 HIGH RISK > 5.0 LAB LDLF(LOINC) 0 - 99 mg/dL High LDL 106 Result Comment: . NEAR BORD AGE DESIRABLE OPTIMAL HIGH HIGH VERY HIGH 0-19 Y 0 - 109 --- 110-129 >/= 130 ---- 20-24 Y 0 - 119 --- 120-159 >/= 160 ---- >24 Y 0 - 99 100-129 130-159 160-189 >/=190 . LAB VLDL(LOINC) 0 - 40 mg/dL VLDL High 41 LAB TRIG(LOINC) 0 - 149 mg/dL TRIGLYCERIDES High 204 Result Comment: . AGE DESIRABLE BORDERLINE HIGH HIGH VERY HIGH 0 D-90 D 19 - 174 ---- ---- ---- 91 D- 9 Y 0 - 74 75 - 99 >/= 100 ---- 10-19 Y 0 - 89 90 - 129 >/= 130 ---- 20-24 Y 0 - 114 115 - 149 >/= 150 ---- >24 Y 0 - 149 150 - 199 200- 499 >/= 500 . Venipuncture immediately after or during the administration of Metamizole may lead to falsely low results. Testing should be performed immediately prior to Metamizole dosing. LAB NHDL(LOINC) mg/dL NON-HDL CHOLESTEROL 146 Result Comment: AGE DESIRABLE BORDERLINE HIGH HIGH VERY HIGH 0-19 Y 0 - 119 120 - 144 >/= 145 >/= 160 20-24 Y 0 - 149 150 - 189 >/= 190 ---- >24 Y 30 MG/DL ABOVE LDL CHOLESTEROL GOAL . Performed By: #### LIPID #### [facility] [address] [place] [address] LIPID PANEL (CORONARY Collected: 12/29/2017 Status: F Source: [facility] RISK 2) 11:48 AM [facility] REPOSITORY TYPE CODE TESTS RESULT OUT OF REFERENCE UNITS RANGE LAB CHOL(LOINC 0 - 199 mg/dL ) CHOLESTEROL 194 Result Comment: . AGE DESIRABLE BORDERLINE HIGH HIGH 0-19 Y 0 - 169 170 - 199 >/= 200 20-24 Y 0 - 189 190 - 224 >/= 225 >24 Y 0 - 199 200 - 239 >/= 240 All ranges are based on fasting samples. Specific therapeutic targets will vary based on patient-specific cardiac risk. . Pediatric guidelines reference:Pediatrics 2011, 128(S5). Adult guidelines reference: NCEP ATPIII Guidelines, JESSEE 2001, 258:2486-97 . Venipuncture immediately after or during the administration of Metamizole may lead to falsely low results. Testing should be performed immediately prior to Metamizole dosing. LAB HDL(LOINC) mg/dL HDL-CHOLESTEROL 47.7 Result Comment: . AGE VERY LOW LOW NORMAL HIGH 0-19 Y < 35 < 40 40-45 ---- 20-24 Y ---- < 40 >45 ---- >24 Y ---- < 40 40-60 >60 . LAB CHHDL(LOINC) CHOLESTEROL/HDL RATIO 4.1 Result Comment: REF VALUES DESIRABLE < 3.4 HIGH RISK > 5.0 LAB LDLF(LOINC) 0 - 99 mg/dL High LDL 106 Result Comment: . NEAR BORD AGE DESIRABLE OPTIMAL HIGH HIGH VERY HIGH 0-19 Y 0 - 109 --- 110-129 >/= 130 ---- 20-24 Y 0 - 119 --- 120-159 >/= 160 ---- >24 Y 0 - 99 100-129 130-159 160-189 >/=190 . LAB VLDL(LOINC) 0 - 40 mg/dL VLDL High 41 LAB TRIG(LOINC) 0 - 149 mg/dL TRIGLYCERIDES High 204 Result Comment: . AGE DESIRABLE BORDERLINE HIGH HIGH VERY HIGH 0 D-90 D 19 - 174 ---- ---- ---- 91 D- 9 Y 0 - 74 75 - 99 >/= 100 ---- 10-19 Y 0 - 89 90 - 129 >/= 130 ---- 20-24 Y 0 - 114 115 - 149 >/= 150 ---- >24 Y 0 - 149 150 - 199 200- 499 >/= 500 . Venipuncture immediately after or during the administration of Metamizole may lead to falsely low results. Testing should be performed immediately prior to Metamizole dosing. LAB NHDL(LOINC) mg/dL NON-HDL CHOLESTEROL 146 Result Comment: AGE DESIRABLE BORDERLINE HIGH HIGH VERY HIGH 0-19 Y 0 - 119 120 - 144 >/= 145 >/= 160 20-24 Y 0 - 149 150 - 189 >/= 190 ---- >24 Y 30 MG/DL ABOVE LDL CHOLESTEROL GOAL . Performed By: #### LIPID #### [facility] [address] [place] [address] HEMOGLOBIN A1C Collected: 12/29/2017 Status: F Source: [facility] 11:48 AM [facility] REPOSITORY TYPE CODE TESTS RESULT OUT OF RANGE REFERENCE UNITS LAB HBA1C(LOINC % ) HGB A1C 8.2 Result Comment: Diagnosis of Diabetes-Adults Non-Diabetic: < or = 5.6% Increased risk for developing diabetes: 5.7-6.4% Diagnostic of diabetes: > or = 6.5% . Monitoring of Diabetes Age (y) Therapeutic Goal (%) Adults: >18 <7.0 Pediatrics: 13-18 <7.5 7-12 <8.0 0- 6 7.5-8.5 [employer]. Diabetes Care 33(S1), Aug 2009. LAB ESAVG(LOINC) MG/DL EST.AVG.GLUCOSE 189 Performed By: #### HBA1E #### [facility] [address] 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 It is also to mid back. Has not had PT for the back. Says that Tylenol did not help, she does take Ibuprofen that did he lp some. Given 800 mg Motrin after tooth getting pulled, says that helped the most. The patient with chronic diabetes.. Her hbg a1c was 8.7 today. She is taking 2.5 mg Glyburide one tablet daily. She is interested in starting weight watchers to lose weight. She understands that weight lose will help her overall health. Mother with hx of DM. She has symptoms of neuropathy in her feet, which she feels is spreading to hands Her LDL to HDL ratio is high. Discussed possibility of starting a statin, but will start with lifestyle changes Vit D was very low This patient has a chronic problem of Hypertension. The patient is taking the prescribed medication on a daily basis. the patient denies any side effects on their current medications. The patient denies any excessive swelling of the lower extremities. She checks her blood pressure at home which usually trends 140/90s. Mother with stroke, Father had CA. She does take a baby ASA daily Patient admits that there is room for improvement in diet. Not exercising Review of Systems Cardiovascular: no chest pain and no lower extremity edema. Respiratory: no shortness of breath during exertion. Musculoskeletal: back pain. Active Problems Abnormal tympanic membrane, left (384.9) (H73.92) Arthralgia of multiple joints (719.49) (M25.50) control (V25.9) (Z30.9) Lora infection (112.9) (B37.9) Diabetes mellitus with neuropathy (250.60,357.2) (E11.40) Diabetic polyneuropathy associated with type 2 diabetes mellitus (250.60,357.2) (E11.42) GERD (gastroesophageal reflux disease) (530.81) (K21.9) HTN (hypertension) (401.9) (I10) Immunization due (V05.9) (Z23) Joint pain (719.40) (M25.50) Left hip pain (719.45) (M25.552) Low back pain (724.2) (M54.5) Malaise and fatigue (780.79) (R53.81,R53.83) Neuropathy (355.9) (G62.9) Rash (782.1) (R21) Restless legs syndrome (333.94) (G25.81) Vitamin B 12 deficiency (266.2) (E53.8) Vitamin D deficiency (268.9) (E55.9) Past Medical History History of cold sores (V12.09) (Z86.19) History of heartburn (V12.79) (Z87.898) History of pharyngitis (V12.69) (Z87.09) History of sinusitis (V12.69) (Z87.09) History of staphylococcal infection (V12.09) (Z86.19) History of streptococcal pharyngitis (V12.09) (Z87.09) History of Lateral epicondylitis of left elbow (726.32) (M77.12) History of Palpitations (785.1) (R00.2) Polydipsia (783.5) (R63.1) History of Polyuria (788.42) (R35.8) Surgical History History of Appendectomy History of Cholecystectomy Laparoscopic History of Inner Ear Surgery History of Partial Colectomy Family History Family history of Family history of diabetes mellitus (V18.0) (Z83.3) Family history of CABG Family history of Family history of diabetes mellitus (V18.0) (Z83.3) Family history of lung cancer (V16.1) (Z80.1) Family history of malignant neoplasm of urinary bladder (V16.52) (Z80.52) Family history of skin cancer (V16.8) (Z80.8) Family history of cardiomyopathy (V17.49) (Z82.49) Family history of myocardial infarction (V17.3) (Z82.49) Family history of ICD (implantable cardioverter-defibrillator) discharge Social History Never a smoker No alcohol use Allergies lisinopril Chest Pain;; Recorded By: Becky Santacruz; 08/21/2017 3:53:06 PM metformin Diarrhea; Recorded By: Sabrina Pagan; 07/28/2017 11:19:32 AM Current Meds Gabapentin 300 MG Oral Capsule; TAKE 1 CAPSULE 3 TIMES DAILY; Therapy: 80Lci3872 to (Evaluate:24Jan2018) Requested for: 59Xpr0639; Last Rx:[id number] Ordered Rx By: Marnie Pyle; Dispense: 90 Days ; #:270 Capsule; Refill: 1;For: Diabetes mellitus with neuropathy; EILEEN = N; Verified Transmission to [facility] #3088; Last Updated By: [employer]; 07/28/2017 11:21:26 AM GlyBURIDE 2.5 MG Oral Tablet; TAKE 1 TABLET DAILY WITH FOOD; Therapy: 78Ykn3400 to (Evaluate:24Jan2018) Requested for: 92Ukm0084; Last Rx:[id number] Ordered Rx By: Marnie Pyle; Dispense: 90 Days ; #:90 Tablet; Refill: 1;For: Diabetes mellitus with neuropathy; EILEEN = N; Verified Transmission to [facility] #3088; Last Updated By: [employer]; 09/05/2017 1:05:16 PM Aspirin 81 MG TABS; TAKE 1 TABLET DAILY; Therapy: 09Jan2015 to Recorded Dispense: 0 Days ; #: Sufficient Tablet; Refill: 0;For: Health Maintenance; EILEEN = N; Record; Last Updated By: Yakelin Decker; 01/09/2015 2:57:23 PM Cholestyramine 4 GM Oral Packet; MIX THE CONTENTS OF 1 POWDER PACKET WITH 2-6 OZ OF NONCARBONATED BEVERAGE AND SWALLOW TWICE DAILY; Therapy: 12Jhv7109 to (Evaluate:32Juc6700) Requested for: 10Dan7692; Last Rx:[id number] Ordered Rx By: Marnie Pyle; Dispense: 90 Days ; #:3 X 60 Packet Box; Refill: 2;For: Health Maintenance; EILEEN = N; Verified Transmission to [facility] #3088; Last Updated By: [employer]; 07/28/2017 11:21:26 AM Atenolol 50 MG Oral Tablet; Take 1 tablet daily Requested for: 21Aug2017; Last Rx:[id number] Ordered Rx By: Marnie Pyle; Dispense: 90 Days ; #:90 Tablet; Refill: 0;For: HTN (hypertension); EILEEN = N; Verified Transmission to [facility] #3088; Last Updated By: [employer]; 08/21/2017 3:43:55 PM Omeprazole 20 MG Oral Capsule Delayed Release; TAKE 1 CAPSULE DAILY Requested for: 38Rpl0487; Last Rx:[id number] Ordered Rx By: Marnie Pyle; Dispense: 90 Days ; #:90 Capsule Delayed Release; Refill: 1;For: PMH: History of heartburn; EILEEN = N; Verified Transmission to [facility] #3088; Last Updated By: Peixe Urbano [employer]; 07/28/2017 11:21:20 AM Vitamin B-12 1000 MCG Oral Tablet; TAKE 1 TABLET DAILY DIRECTED; Therapy: 55Ysr6724 to (Evaluate:71Tgu5672) Requested for: 32Usq2681; Last Rx:[id number] Ordered Rx By: Marnie Pyle; Dispense: 90 Days ; #:90 Tablet; Refill: 1;For: Vitamin D deficiency; EILEEN = N; Verified Transmission to [facility] #3088; Last Updated By: [employer]; 07/28/2017 11:21:22 AM Vitamin D (Ergocalciferol) 12724 UNIT Oral Capsule; TAKE 1 CAPSULE WEEKLY; Therapy: 97Dxc6590 to (Evaluate:12Jan2018) Requested for: 05Jra6605; Last Rx:[id number] Ordered Rx By: Marnie Pyle; Dispense: 84 Days ; #:12 Capsule; Refill: 1;For: Vitamin D deficiency; EILEEN = N; Verified Transmission to [facility] #3088; Last Updated By: [employer]; 07/28/2017 7:52:30 PM Vitamin D3 2000 UNIT Oral Tablet; Take 1 tablet daily; Therapy: 66Nma2756 to (Last Rx:[id number]) Requested for: 80Kck7902 Ordered Rx By: Marnie Pyle; Dispense: 0 Days ; #:90 Tablet; Refill: 1;For: Vitamin D deficiency; EILEEN = N; Verified Transmission to [facility] #3088; Last Updated By: [employer]; 07/28/2017 11:21:20 AM Vitals Vital Signs Recorded: 05Sep2017 12:48PM Extyzfelcxz87.7 F Heart Rate63 Iidosadmfiu50 Ykskldmp754, RUE, Sitting Pxbfcobql85, RUE, Sitting Blood Pressure Cuff SizeLarge Vvxygg729 lb 8 oz BMI Wzpisyrhwc03.21 BSA Calculated2.24 O2 Zwxyzxadss76 Physical Exam Gen: patient is alert and oriented 3, pleasant, and in no apparent distress Cardiovascular: heart regular rate and rhythm with no murmurs clicks or gallops Lungs: clear to auscultation without wheeze, rhonchi or rales. Abdomen: soft, nontender, no hepatosplenomegaly, nondistended with normal bowel sounds. Morbidly obese Extremities: no clubbing, cyanosis or edema Diagnoses/Problems Arthralgia of multiple joints (719.49) (M25.50) HTN (hypertension) (401.9) (I10) Low back pain (724.2) (M54.5) Orders HTN (hypertension) Start: AmLODIPine Besylate 5 MG Oral Tablet; TAKE 1 TABLET DAILY Rx By: Marnie Pyle; Dispense: 90 Days ; #:90 Tablet; Refill: 1;For: HTN (hypertension); EILEEN = N; Verified Transmission to [facility][id number]; Last Updated By: Landon Atomic Reach; 09/05/2017 1:12:38 PM Low back pain Physical Therapy Referral Evaluation and Treatment Evaluate AND Treat Patient prefers Will suazod Status: Hold For - Scheduling,Retrospective Authorization Requested for: 05Sep2017 Ordered;For: Low back pain; Ordered By: Marnie Pyle Performed: Due: 04Dec2017; Last Updated By: Rosa Santacruz; 09/05/2017 1:19:51 PM Patient Discussion/Summary For the low back arthritis - 1) We ordered physical therapy 2) Acetaminophen, which is Tylenol, can safely be used daily by most patients. You can take 2 tablets of the 500 mg tabs (totalling 1000mg) up to 3 times daily, every day, safely for pain relief or fever. Taking Tylenol 500 mg 2 tabs three times daily every day is called scheduled dosing, and is recommended as the first line for chronic pain conditions such as arthritis. 3) Prescribed Meloxicam to take as needed if the scheduled Tylenol is not enough. Do not take any additional Ibuprofen with the Meloxicam For the elevated hemoglobin a1c - 1) Increase Glyburide to 5 mg daily (take two tablets at one time in the morning) (call when you run out, will send in 5 mg tabs next time) 2) After eating, walk for 5-10 minutes to help process sugar 3) Check your sugars 1-2 times per week, both fasting and non fasting. Fasting glucose goal is 80-120. Goal glucose after a meal should be no higher than 160, at worst 180 4) Recommend limitation of refined carbohydrates such as pasta, pretzels, breads, , sugar sweetened foods or beverages, alcohol, pastries, cereals, or bagels. Recommend eating lots of vegetables, lean p roteins, some fruits. Eat small amounts of healthy fat daily, such as a handful of almonds or walnuts, a serving of salmon, a splash of olive oil on your salad, an avocado. Recommend some sort of exerci se 4-6 times per week, 30 minutes those days, as patient is able. 5) It is great if you want to join Weight [employer]! It is safe to lose up to 2 lbs per week. 6) Recommend reading any of Dr. Chavo Vilchis's books. Good dietary advice and lifestyle change recommendations can be found in such books as The 10 Day Detox and Eat Fat, Get Thin. Uncontrolled hypertension 1) Prescribed Amlodipine 5 mg daily to take in addition with your current medications , continue atenolol 2) Recommend low salt, high-fiber diet (DASH diet- dietary approach to stop hypertension) Vitamin D deficiency - 1) Refilled prescription Vitamin D when you run out; will do 6 mo then recheck We will hold off on starting a statin for now to see how you are doing with lifestyle changes For a lifestyle modification and supplement approach to improving cholesterol, consider taking psyllium capsules or powder 2 times daily, such as Fast [employer] or Metamucil. Consider also adding lizette nt stanols and sterols such as Nature Made CholestOff, available over the counter. Both have good data for lowering cholesterol. Make sure you are limiting refined carbohydrates such as breads, alcohol, cereals, pasta, pretzels, pastries, desserts, and any sugar sweetened beverages. Eat at least 5 -7 servings of vegetables or fruit daily, aiming for more veggies than fruit. Eat lean proteins such as e ggs, fish, chicken, beans. Healthy whole grains can be included such as long -cooking brown rice, quinoa, or millet. Eat some healthy fats each day - a handful of almonds or walnuts, an avocado, some ol reshma oil on your salad. Exercise should be included as you are able, with a goal of 30 minutes 4 -6 days per week. Follow up in 3 months to recheck a1c and urine albumin , will do foot exam at that time too .. By signing my name below, I, Choco Galeana, attest that this documentation has been prepared under the direction and in the presence of Dr. Pyle. All medical record entries made by the Scribe were at my direction and personally dictated by me. I have reviewed the chart and agree that the record accurately reflects my personal performance of the h istory, physical exam, discussion and plan. (Dr. Pyle). End of Encounter Meds AmLODIPine Besylate 5 MG Oral Tablet; TAKE 1 TABLET DAILY; Therapy: 05Sep2017 to (Evaluate:68Mdi9528) Requested for: 05Sep2017; Last Rx:05Sep2017 Ordered Aspirin 81 MG TABS; TAKE 1 TABLET DAILY; Therapy: 09Jan2015 to Recorded Atenolol 50 MG Oral Tablet; Take 1 tablet daily Requested for: 21Aug2017; Last Rx:21Aug2017 Ordered Cholestyramine 4 GM Oral Packet; MIX THE CONTENTS OF 1 POWDER PACKET WITH 2-6 OZ OF NONCARBONATED BEVERAGE AND SWALLOW TWICE DAILY; Therapy: 24Whq7409 to (Evaluate:05Nqy0115) Requested for: 12Twx9985; Last Rx:52Spt5686 Ordered Gabapentin 300 MG Oral Capsule; TAKE 1 CAPSULE 3 TIMES DAILY; Therapy: 80Zgg9645 to (Evaluate:24Jan2018) Requested for: 97Lqu8899; Last Rx:80Kql3826 Ordered GlyBURIDE 5 MG Oral Tablet; TAKE 1 TABLET TWICE DAILY BEFORE MEALS; Therapy: 98Lip7446 to (Evaluate:91Vhy0054) Requested for: 05Sep2017; Last Rx:05Sep2017 Ordered Meloxicam 15 MG Oral Tablet; TAKE 1 TABLET BY MOUTH EVERY DAY NEEDED; Therapy: 05Sep2017 to (Evaluate:00Tni5630) Requested for: 05Sep2017; Last Rx:05Sep2017 Ordered Omeprazole 20 MG Oral Capsule Delayed Release; TAKE 1 CAPSULE DAILY Requested for: 04Lin4945; Last Rx:95Qqb7832 Ordered Vitamin B-12 1000 MCG Oral Tablet; TAKE 1 TABLET DAILY DIRECTED; Therapy: 54Hwq3154 to (Evaluate:24Jan2018) Requested for: 60Nhy4193; Last Rx:08Got9866 Ordered Vitamin D (Ergocalciferol) 98352 UNIT Oral Capsule; TAKE 1 CAPSULE WEEKLY; Therapy: 04Lgl2822 to (Evaluate:12Jan2018) Requested for: 90Riz1935; Last Rx:02Zwf5663 Ordered Vitamin D3 2000 UNIT Oral Tablet; Take 1 tablet daily; Therapy: 72Ayw9976 to (Last Rx:06Uxm5999) Requested for: 94Ejg8494 Ordered Signatures Electronically signed by : CHOCO Galeana; Sep 05 2017 1:17PM EST (Author) Electronically signed by : Marnie Pyle DO; Sep 05 2017 1:21PM EST (Author) ALLERGIES ALLERGIES DATE TYPE / CODE NAME / CODE REACTION SEVERITY SOURCE 08/14/2018 Drug amlodipine/ TACHYCARDIA Unknown [facility] Allergy/4160 [id number]( [place] [address](SNOMED RXNORM) Repository CT) 08/14/2018 Drug diltiazem/F horrible SV [facility] Allergy/4160 [id number]([place] [address](SNOMED XNORM) Repository CT) ENCOUNTERS ENCOUNTERS ADMIT/DISCHARGE ACCOUNT ADMITTING ENCOUNTER LOCATION SOURCE NUMBER CLASS 08/21/2018 [id number] Ambulatory BMSBuilding:B Mik [address] [facility] Repository 07/21/2018 [id number] Ambulatory Mobile [facility] ing:[facility] Repository 05/11/2018/ [id number] Ambulatory Mobile Mik [facility] ing:NS Repository 04/24/2018/ [id number] Ambulatory Mobile Mik 8 [facility] ing:NS Repository 04/21/2018 [id number] Ambulatory BMSBuilding:W Mik 0 [facility] Repository 04/21/2018 [id number] Ambulatory Mobile Mobile 7 [facility] ing:[facility] Repository 04/21/2018 [id number] Ambulatory BMSBuilding:W Mobile 8 [facility] Repository 04/21/2018 [id number] Ambulatory Mik Mobile [facility] ing:[facility] Repository 02/23/2018 [id number] Ambulatory Mik Mik [facility] ing:[facility] Repository 02/02/2018/ [id number] Ambulatory BMSBuilding:B Mobile [address] [facility] Repository PAYERS PAYERS ENCOUNTER GUARANTOR PAYER SUBSCRIBER SOURCE 08/21/2018 Primary NOT GIVENUNK Mobile Insurance:SELF PAY [facility] [place] Number: Effective Repository Date:2018-01-22 07/21/2018 JUANITO M Primary JOE OVERLYUNK Mobile [id number] [facility] Number: [place], [place] [id number] Repository [address]Sog: (330) Date:2877-37-43IF [phone] () [id number], [place] [address]IY: 07/21/2018 Secondary NOT GIVENUNK Mobile Insurance:SELF PAY [facility] [place] Number: Effective Repository Date:2018-07-21 05/11/2018 JUANITO M Primary JOE OVERLYUNK Mik [id number] [facility] Number: [place], [place] [id number] Repository [address]Fub: (330) Date:2365-66-29JA [phone] () [place], [place] [address]QL: 05/11/2018 Secondary NOT GIVENUNK Mobile Insurance:SELF PAY [facility] [place] Number: Effective Repository Date:2018-05-11 04/24/2018 JUANITO M Primary JOE OVERLYUNK Mobile [id number] [facility] Number: [place], [place] [id number] Repository [address]Kce: (330) Date:4689-14-79ZY [phone] (HP) [id number] [place] [address]XM: 04/24/2018 Secondary NOT GIVENUNK Mobile Insurance:SELF PAY [facility] Number: Effective Repository Date:2018-04-23 04/21/2018 JUANITO M Primary JOE OVERLYUNK Mobile [id number] Insurance:AETNAPolicy Community MIK PIKE Number: [place], [place] [id number] Repository [address]Ufy: (330) Date:3785-32-96HR [phone] (HP) [id number] [place]ANOVA [address]CW: 04/21/2018 Secondary NOT GIVENUNK Mobile Insurance:SELF PAY [facility] Number: Effective Repository Date:2018-04-21 04/21/2018 JUANITO M Primary JOE OVERLYUNK Mobile [id number] Insurance:AETNAPolicy Community MIK PIKE Number: [place], [place] [id number] Repository [address]Kym: (330) Date:0233-27-20KM [phone] () [id number] [place] [address]WX: 04/21/2018 Secondary NOT GIVENUNK Mik Insurance:SELF PAY [facility] Number: Effective Repository Date:2018-01-22 04/21/2018 JUAINTO M Primary JOE OVERLYUNK Mobile [id number] Insurance:AETNAPolicy Community MIK PIKE Number: [place], [place] [id number] Repository [address]Zao: (330) Date:3119-31-31EH [phone] () [id number] [place] [address]CB: 04/21/2018 Secondary NOT GIVENUNK Mobile Insurance:SELF PAY [facility] Number: Effective Repository Date:2018-04-21 04/21/2018 JUANITO M Primary NOT GIVENUNK Mobile [id number] Insurance:SELF PAY Community [place] [facility] [place] Number: Effective Repository [address]Psd: (330) Date:2018-01-22 [phone] () 02/23/2018 JUANITO M Primary JOE OVERLYUNK Mobile [id number] Insurance:AETNAPolicy Community MIK PIKE Number: [place], [place] [id number] Repository [address]Ecq: (330) Date:2894-47-36FZ [phone] () [place], [place] [address]UG: 02/23/2018 Secondary NOT GIVENUNK Mobile Insurance:SELF PAY [facility] [place] Number: Effective Repository Date:2018-01-22 02/02/2018 JUANITO M Primary JOE OVERLYUNK Mik [id number] Insurance:AETNAPolicy Community MIK PIKE Number: [place], [place] [id number] Repository [address]Zta: (330) Date:8824-61-49NT [phone] () [place], [place] [address]SM: 02/02/2018 Secondary NOT GIVENUNK Mik Insurance:SELF PAY [facility] [place] Number: Effective Repository Date:2018-02-02
== END ==
PROVIDERS: Family Provider Family Medicine; PCP Family Medicine; Visit Provider Family Medicine
DX: E11.40 Type 2 diabetes mellitus with diabetic neuropathy, unspecified (principal); I10 Essential (primary) hypertension; E55.9 Vitamin D deficiency, unspecified
CPT/HCPCS: 36415; 80053; 81001; 82043; 82306; 82570; 82607; 83036; 84425; 84443; 85025